=== PATIENT | male | born 1950 | race Caucasian/White ===

== ENCOUNTER 2019-04-18 09:29 | Day surgery (SDC) | payer OTHER, MEDICARE ==
[2019-04-13 14:28] VITALS: BMI 31.8
[2019-04-18] MEDS ORDERED: PROPOFOL 20 ML ONE ×4 (09:50)
[2019-04-18 11:26] VITALS: BP 119/74; PULSE 75; TEMP 97.8
--- NOTE | 2019-04-25 11:48 | PATH ---
Surgical Pathology Report Patient Name: PAT QUICK [facility]. Rec. #: [id number] /Age/Gender: 1950 (Age: 68) / M Account: [id number] Location: [facility] Taken: 04/18/2019 Received: 04/18/2019 Reported: 04/25/2019 Physicians: Arnaldo Mayorga M.D. Specimen(s) Received A: SECOND PORTION OF DUODENUM B: GASTRIC ANTRUM C: POLYP PROXIMAL RIGHT COLON D: POLYP HEPATIC FLEXURE Clinical History Duodenitis, duodenal, ulcer, gastritis, diverticulosis, colon, polyps Final Diagnosis A. SECOND PORTION OF DUODENUM, BIOPSY: MILD CHRONIC DUODENITIS. B. GASTRIC ANTRUM, BIOPSY: SEVERE CHRONIC ACTIVE GASTRITIS. IMMUNOSTAIN SHOWS NUMEROUS H. PYLORI ORGANISMS. C. PROXIMAL RIGHT COLON, POLYP, BIOPSY: TUBULAR ADENOMA. D. HEPATIC FLEXURE, POLYP, BIOPSY: TUBULAR ADENOMA. Electronically Signed Anjana Alex M.D. Gross Description A. Received in formalin, labeled "second portion of duodenum" are 2 dueñas, irregular portions of soft tissue each measuring 0.3 cm. in greatest dimension. The specimens are submitted in toto in one cassette. B. Received in formalin, labeled "gastric antrum" are 2 dueñas, irregular portions of soft tissue each measuring 0.3 cm. in greatest dimension. The specimens are submitted in toto in one cassette. C. Received in formalin, labeled "polyp, proximal right colon" is a dueñas, irregular portion of soft tissue measuring 0.2 cm. in greatest dimension. The specimen is submitted in toto in one cassette. D. Received in formalin, labeled "polyp, hepatic flexure" is a dueñas, irregular portion of soft tissue measuring 0.2 cm. in greatest dimension. The specimen is submitted in toto in one cassette.
== END 2019-04-18 11:26 | disposition home or self-care (01) ==
LOC: FASU-ENDO 09:29
PROVIDERS: ATTEND Internal Medicine Gastroenterology
PROC: 0DBL8ZX Excision of Transverse Colon, Via Natural or Artificial Opening Endoscopic, Diagnostic (ICD-10-PCS; 2019-04-18)
PROC: 0DB98ZX Excision of Duodenum, Via Natural or Artificial Opening Endoscopic, Diagnostic (ICD-10-PCS; 2019-04-18)
PROC: 0DB68ZX Excision of Stomach, Via Natural or Artificial Opening Endoscopic, Diagnostic (ICD-10-PCS; 2019-04-18)
PROC: 0DBK8ZX Excision of Ascending Colon, Via Natural or Artificial Opening Endoscopic, Diagnostic (ICD-10-PCS; principal; 2019-04-18 10:05)
DX: Z12.11 Encounter for screening for malignant neoplasm of colon (principal); Z83.71 Family history of colonic polyps; D12.2 Benign neoplasm of ascending colon; D12.3 Benign neoplasm of transverse colon; K57.30 Diverticulosis of large intestine without perforation or abscess without bleeding; K29.80 Duodenitis without bleeding; K29.50 Unspecified chronic gastritis without bleeding; B96.81 Helicobacter pylori [H. pylori] as the cause of diseases classified elsewhere; R12 Heartburn
CPT/HCPCS: 88305-TC; 88342-TC